=== PATIENT | female | born 1970 | race Caucasian/White ===

== ENCOUNTER 2017-07-20 06:16 | Inpatient (IN) | payer BC, OTHER ==
[2017-07-16 14:35] VITALS: BMI 26.2
[2017-07-20] MEDS ORDERED: THROMBIN (BOVINE) 5,000 UNIT VIAL TP ONE (07:13)
[2017-07-20] MEDS ORDERED: fentaNYL CITRATE 250 MCG/5 ML VIAL ONE ×2 (08:40→12:22)
[2017-07-20] MEDS ORDERED: SUCCINYLCHOLINE CHLORIDE 200 MG/10 ML VIAL ONE (08:40)
[2017-07-20] MEDS ORDERED: PROPOFOL 20 ML ONE ×15 (08:40→15:25)
[2017-07-20] MEDS ORDERED: ceFAZolin SODIUM 1 GM VIAL ONE ×2 (08:41→20:38)
[2017-07-20] MEDS ORDERED: DEXAMETHASONE SOD PHOSPHATE 4 MG/1 ML VIAL ONE (08:41)
[2017-07-20] MEDS ORDERED: ONDANSETRON 4 MG/2 ML VIAL ONE ×2 (08:41→11:56)
[2017-07-20] MEDS ORDERED: TRANEXAMIC ACID 1000 MG/10 ML VIAL ONE (08:41)
[2017-07-20] MEDS ORDERED: VANCOMYCIN 1,000 MG VIAL (RESTRICTED TO ID ONLY) ONE (08:41)
[2017-07-20] MEDS ORDERED: MIDAZOLAM HCL 2 MG/2 ML SINGLE DOSE VIAL ONE ×2 (08:41→11:54)
[2017-07-20] MEDS ORDERED: LIDOCAINE HCL/PF 2% SDV 5ML VIAL ONE (08:41)
[2017-07-20] MEDS ORDERED: SODIUM CHLORIDE 0.9% P/F 10 ML VIAL IJ ONE (08:44)
[2017-07-20] MEDS ORDERED: VANCOMYCIN 1,000 MG VIAL (RESTRICTED TO ID ONLY) IVPB ONE (11:40)
[2017-07-20] MEDS ORDERED: HEPARIN NA (PORCINE) 5,000 UNITS/ML 1ML VIAL ONE (12:25)
[2017-07-20] MEDS ORDERED: ROCURONIUM BROMIDE 50 MG/5 ML VIAL ONE (13:12)
[2017-07-20] MEDS ORDERED: BENZOIN/ALOE VERA/STORAX/TOLU 58 ML BOTTLE ONE (15:37)
--- NOTE | 2017-07-20 16:00 | OP ---
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 C4/5 and C6/7 ACDF. 2. Partial Corpectomies C4,5,6,7. Post-Operative Diagnosis: Same as Pre-op Surgeon: Thiago Walker Environmental Engineering Assistant: Arpan Walker Anesthesiologist/LAND AGENT: Gaetano Barreto Anesthesia: General Specimens Removed: C4/5 C6/7 disc Estimated Blood Loss (mls): 150 Operative Report Dictated: Yes
--- NOTE | 2017-07-20 16:03 | PN ---
Progress Note (short form) - Note Progress Note: 46F s/p SELENE, C4-5 & C6-7 ACDF POD #0. -Admit to ICU post-op x 24 hrs. for airway observation. -Pain control. -DVT PPx: Mechanical only (BRIAN's, SCD's). -Incentive spirometry. -PT/OT/Rehab, OOB. -WBAT B/L UE & LE. -Post op Decadron 10mg IV q12 x 2 doses. -Post-op Antibiotics. -Soft diet; advance as tolerated. -d/c Bloom catheter in PACU; f/u TOV. -HOB elevation at least 45 degrees; increase as tolerated. -NO NSAID's. -Care per medical hospitalist team. -Will follow. -Discharge planning: home. Thiago Walker MD (Orthopaedic Surgery).
[2017-07-20] MEDS ORDERED: ONDANSETRON 4 MG/2 ML VIAL IVPUSH PRN (16:04)
[2017-07-20] MEDS ORDERED: LACTATED RINGERS SOLUTION 1,000 ML IV SCH (16:15)
[2017-07-20] MEDS ORDERED: OMALIZUMAB 150 MG SQ SCH (16:15)
[2017-07-20] MEDS: oxyCODONE HCL 5 MG TABLET PO PRN ×3 (16:50→21:38)
[2017-07-20] MEDS: ACETAMINOPHEN 325 MG TABLET (FP) PO PRN (18:49)
[2017-07-20] MEDS ORDERED: CEFAZOLIN 1 GM in DEXTROSE 5%-WATER - 50 ML IVPB SCH ×2 (19:00→20:34)
--- NOTE | 2017-07-20 20:33 | OP ---
DATE OF OPERATION: 07/20/2017 SURGEON: Thiago Walker MD HARNESS RIGGER SURGEON: Arpan Walker MD PREOPERATIVE DIAGNOSES: Adjacent level spinal stenosis, C6-C7 and segmental instability, C4-5 with associated stenosis at both levels appropriately. POSTOPERATIVE DIAGNOSES: Adjacent level spinal stenosis, C6-C7 and segmental instability, C4-5 with associated stenosis at both levels appropriately. OPERATION PERFORMED: 1. Removal of hardware. 2. Inspection of fusion mass. 3. Anterior cervical diskectomy and fusion, C4-5 and C6-C7. 4. Partial corpectomy, C4; partial corpectomy, C5; partial corpectomy, C6; partial corpectomy, C7. 5. Anterior plating, C4 and C5 and independent, separate plate, C6-C7. 6. Insertion of cages with anterior arthrodesis, C4-5 and C6-C7. ANTIBIOTICS GIVEN: Kefzol 2 g, vancomycin 1 g, Decadron 10 mg given. INDICATIONS: Patient admitted for an adjacent level C6-C7 anterior cervical diskectomy, fusion, and partial corpectomy, but operation details changed, adding to the C4-5 level due to associated anterolisthesis and segmental instability at this level with mild stenosis preventing the need for a third operation which would readily have to be done if this level was neglected and only the C6-C7 level was attended to. OPERATION DETAILS: With the patient in the supine position, a transverse rolled towel behind the scapulae, the neck was extended. Prior to this, in the neutral flat position, neuromonitoring under general anesthesia was performed, found to have excellent levels. The patient was positioned into the papoose extended-neck position, and no change occurred in neuromonitoring. The incision originally was on the right-hand side. We extended the incision at the same level; that is at the cricothyroid interval to the left-hand side. The dissection was taken through the subcutaneous tissue; platysma split. The plane between the viscera and vessels was noted, and even though there was scarring readily noted up to the right-hand side, the dissection facilitated freeing of the longus colli off the bone bed from C4 right down to C7, both left and right-hand side. The retractors were placed into the longus colli, and because of the difficulty of the proximal and distal positioning, we elected to treat each disk separately. To start, the original plate was removed. With the appropriate instrumentation, the fusion mass noted and tested and found to be completely solid. At that point, the light microscope was brought into the room. The C4-5 disk was identified. The annulus resected off the bone bed with a unipolar Bovie. Curettes utilized to scoop out all disk material. It was readily noted hypermobility at the segment as predicted on the MRI and CT scan. Using a Midas Bob bur as well as Kerrison up-cuts, a rectangular space was cut into the bed. This is the area that kyphosis had occurred. Two [place] pins were placed, one into the body of C4 and the other in the body of C5. Distraction across the disk space facilitated episcopal of lordosis. The entire disk was removed right down to healthy bleeding endplate and right down to the posterior longitudinal ligament. A size 7 TETRAfuse cage inserted. This was packed with OSTEOFIL bone graft. This was demineralized bone matrix. The [place] pins were released, and the ligamentotaxis collapsed the bone endplates onto the cage with solid fixation achieved. A size 16 Simplicity plate applied and 4 screws. All this equipment from the [employer]. The screws measured 4 x 12 mm, two placed in C4 and two placed in C5. Solid fixation achieved. Once this had been achieved, attention was drawn to the C6-C7 disk. A repositioning of retractors and [place] pins performed. The disk itself was difficult to identify. Burring anteriorly enabled to find the disk. A rectangle was cut into the bone bed with partial corpectomies having been performed at C6 and C7 in order to achieve access to this disk. The disk was scooped out with curettes as well, and the dissection was taken right down through the posterior longitudinal ligament. The posterior longitudinal ligament at this level was resected to ensure that the stenosis was completely removed. A size 8 TETRAfuse plate was inserted at this level, and 2 screws seated into C6 and 2 screws were seated into C7, ranging 4 x 12 mm at C7 and 4.5 x 12 mm at C6. It must be noted that prior to all cages being inserted, a complete hemostasis was achieved. Hemostasis with a combination of Gelfoam, FloSeal combined with bipolar Bovie. Tissues were dry at the time of plating of the third component which was a size 14-mm Simplicity cage with the above-mentioned screws as noted. This completed independent ACDF of C4-5, C6-7, each level with its independent plate over C4-5 and C6-C7. The reason for not using one long plate was because of the difficulty of achieving proximal and distal exposure at the same time, and we elected to utilize 2 plates in the light of the fact that there was a solid previous fusion. The wounds were thoroughly lavaged. Closure of platysma and subcutaneous investing lateral fascia with 2-0 Vicryl, subcutaneous 3-0 Vicryl, skin 3-0 Monocryl with Steri-Strips. Operation went extremely well. No complications. MD SUJATA Driver/[id number]
[2017-07-20] MEDS ORDERED: DEXTROSE 5%-WATER - 50 ML IVPB ONE (20:39)
[2017-07-20] MEDS: CEFAZOLIN 1 GM in DEXTROSE 5%-WATER - 50 ML IVPB SCH (20:40)
--- NOTE | 2017-07-20 21:13 | CONSULT ---
Consult Consult Specialty:: Critical Care/Pulmonary Medicine Reason for Consultation:: Airway monitoring s/p SELENE, C4-5 & C6-7 ACDF - History of Present Illness Chief Complaint: neck pain History of Present Illness: Mrs. Marc is a 46yo female with pmhx prior sinus surgeries, csection, cone biopsy, cholecystectomy, and seasonal allergies who was admitted to ICU for airway monitoring s/p SELENE, C4-5 & C6-7 ACDF, now POD #0. - History Source History Provided By: Patient Limitations to Obtaining History: No Limitations - Past Medical History ...: No ENT: Yes: Sinusitis, Other (seasonal allergies) - Past Surgical History Past Surgical History: Yes: Cholecystectomy Additional Surgical History: sinus surgeries, cone biopsys, - Alcohol/Substance Use Hx Alcohol Use: No - Smoking History Smoking history: Current some day smoker Have you smoked in the past 12 months: Yes Aproximately how many cigarettes per day: 6 - Social History Usual Living Arrangement: With Spouse ADL: Independent Occupation: Homemaker Home Medications - Allergies Allergies/Adverse Reactions: Allergies Allergy/AdvReac Type Severity Reaction Status Date / Time aspirin Allergy Severe Difficulty Verified 07/16/17 15:10 Breathing codeine Allergy Severe Hives Verified 07/16/17 15:13 ibuprofen Allergy Severe Difficulty Verified 07/16/17 15:12 Breathing Sulfa (Sulfonamide Allergy Severe Hives Verified 07/16/17 15:13 Antibiotics) KIMBALL PEPPERS Allergy Difficulty Uncoded 07/16/17 15:15 Breathing - Home Medications Home Medications: Ambulatory Orders Esomeprazole Magnesium [Nexium 24Hr] 40 mg PO DAILY 07/16/17 Hydrocodone/Acetaminophen [Vicodin 5-300 mg Tablet] 1 each PO PRN PRN 07/16/17 Montelukast Sodium [Singulair] 10 mg PO DAILY 07/16/17 Omalizumab [Xolair -] 150 mg SQ MONTHLY 07/16/17 Review of Systems - Review of Systems Constitutional: reports: No Symptoms Eyes: reports: No Symptoms HENT: reports: No Symptoms Neck: reports: Pain on Movement, Tenderness Cardiovascular: reports: No Symptoms Respiratory: reports: No Symptoms Gastrointestinal: reports: No Symptoms Genitourinary: reports: No Symptoms Musculoskeletal: reports: Other (neck pain) Integumentary: reports: No Symptoms Neurological: reports: No Symptoms Physical Exam Vital Signs: Vital Signs Temperature 98.4 F 07/20/17 17:58 Pulse Rate 76 07/20/17 17:58 Respiratory Rate 20 07/20/17 17:58 Blood Pressure 109/78 07/20/17 17:58 O2 Sat by Pulse Oximetry (%) 93 L 07/20/17 17:58 Constitutional: Yes: Well Nourished Eyes: Yes: WNL HENT: Yes: WNL Neck: Yes: Other (anterior surgical dsg c/d/i) Cardiovascular: Yes: WNL Respiratory: Yes: CTA Bilaterally Gastrointestinal: Yes: WNL, Normal Bowel Sounds, Soft Musculoskeletal: Yes: WNL Extremities: Yes: WNL Edema: No Peripheral Pulses WNL: Yes Integumentary: Yes: WNL Wound/Incision: Yes: Clean/Dry Neurological: Yes: WNL, Alert, Oriented ...Motor Strength: WNL Psychiatric: Yes: WNL Assessment/Plan Mrs. Marc is a 46yo female with pmhx prior sinus surgeries, csection, cone biopsy, cholecystectomy, and seasonal allergies who was admitted to ICU for airway monitoring s/p SELENE, C4-5 & C6-7 ACDF, now POD #0. Plan: -Admitted to ICU post-op for 24 hours of close airway monitoring -Pain control prn -Avoid NSAIDs -Anxiety control prn -Incentive spirometry -Extubated post-op --> Currently on NC, Wean supplemental O2 as able for goal O2sat >93% -As per surgeon - Decadron 10mg IV q12 x 2 doses -Post-op abx as ordered -Advance diet as tolerated -Ensure void after corona d/c -Maintain HOB >45 degrees -DVT ppx with SCDs, no SQ Hep -No indication for GI ppx -Dispo: will likely dc home tomorrow in daytime JORGE Banda CC time: 30minutes
[2017-07-20] MEDS ORDERED: diazePAM 2 MG TABLET PO ONE (21:30)
[2017-07-20] MEDS: DEXAMETHASONE SOD PHOSPHATE 10 MG/1 ML VIAL IVPUSH SCH (22:57)
[2017-07-20] MEDS ORDERED: diazePAM 5 MG TABLET PO ONE (23:00)
[2017-07-21] MEDS: oxyCODONE HCL 5 MG TABLET PO PRN ×4 (01:02→12:42)
[2017-07-21] MEDS: ACETAMINOPHEN 325 MG TABLET (FP) PO PRN (01:03)
[2017-07-21] MEDS ORDERED: ceFAZolin SODIUM 1 GM VIAL ONE (04:04)
[2017-07-21] MEDS: CEFAZOLIN 1 GM in DEXTROSE 5%-WATER - 50 ML IVPB SCH (04:08)
[2017-07-21 06:31] LABS: HEMATOCRIT 40.8 % (32.4-45.2); HEMOGLOBIN 14.1 GM/dL (10.7-15.3); MCH 30.5 pg (25.7-33.7); MCHC 34.4 g/dl (32.0-36.0); MEAN CELL VOLUME 88.6 fl (80-96); MEAN PLT VOLUME 9.8 fl (7.5-11.1); PLATELET COUNT 274 K/MM3 (134-434); RBC 4.61 M/mm3 (3.60-5.2); RDW 12.2 % (11.6-15.6); WHITE BLOOD COUNT 14.5 K/mm3 (4.0-10.0)
[2017-07-21 06:51] LABS: ANION GAP 10 (8-16); BLOOD UREA NITROGEN 8 mg/dL (7-18); CALCIUM 8.7 mg/dL (8.5-10.1); CHLORIDE 108 mmol/L (98-107); CO2 23 mmol/L (21-32); GLUCOSE,RANDOM 129 mg/dL (74-106); POTASSIUM 4.4 mmol/L (3.5-5.1); SODIUM 141 mmol/L (136-145)
[2017-07-21 06:52] LABS: CREATININE 0.7 mg/dL (0.55-1.02)
[2017-07-21] MEDS ORDERED: MONTELUKAST NA 10 MG TABLET PO SCH (10:00)
[2017-07-21 10:25] VITALS: TEMP 98.5
[2017-07-21] MEDS: DEXAMETHASONE SOD PHOSPHATE 10 MG/1 ML VIAL IVPUSH SCH (11:22)
--- NOTE | 2017-07-21 11:36 | DS ---
Physical Exam: SUBJECTIVE: Patient seen and examined in ICU. She is feeling good today, complaining of mild pain in her neck. She denies headache, vision problems, dizziness, chest pain, SOB, N/V. OBJECTIVE: Vital Signs Period Temp Pulse Resp BP Sys/Greer Pulse Ox Last 24 Hr 97.8 F-99.5 F 58-97 14-20 105-126/59-79 92-96 PHYSICAL EXAM GENERAL: The patient is awake, alert, and fully oriented, in no acute distress. HEAD: Normal with no signs of trauma. EYES: extraocular movements intact, sclera anicteric, conjunctiva clear. ENT: Ears normal, nares patent, oropharynx clear without exudates, moist mucous membranes. NECK: Trachea midline, limited range of motion, supple, 4x4 dressing applied in the front of her neck, no skin erythema, no discharge. LUNGS: Breath sounds equal, occasional rhonchi, no wheezing, no accessory muscle use. HEART: Regular rate and rhythm, S1, S2 without murmur, rub or gallop. ABDOMEN: Soft, nontender, nondistended, normoactive bowel sounds, no guarding, no rebound, no hepatosplenomegaly, no masses. EXTREMITIES: no edema. NEUROLOGICAL: Normal speech, no facial asymmetry, normal sensation, 5/5 motor strength, gait not observed. PSYCH: Normal mood, normal affect. SKIN: Warm, dry, no rashes. LABS Laboratory Results - last 24 hr 07/21/17 07/21/17 05:40 05:40 WBC 14.5 H RBC 4.61 Hgb 14.1 Hct 40.8 MCV 88.6 MCH 30.5 MCHC 34.4 RDW 12.2 Plt Count 274 MPV 9.8 Sodium 141 Potassium 4.4 Chloride 108 H Carbon Dioxide 23 Anion Gap 10 BUN 8 Creatinine 0.7 Random Glucose 129 H Calcium 8.7 HOSPITAL COURSE: Date of Admission:07/20/17 Date of Discharge: 07/21/17 Minutes to complete discharge: 35 Discharge Summary Reason For Visit: CERVICAL DISC DISORDER Current Active Problems History of cervical spinal surgery (Acute) Hospital Course: The patient is a 46 year old female with a PMH of asthma, seasonal allergies, s/ p cervical surgery 10 years ago that was admitted cervical SELENE C4-5 & c6-7 ACDF on 07/20/2017. Her surgery as well as pos op period was not complicated. She received LR, Decadron 10 mg, pain medications: Fetanyl, Oxycodone and Tylenol. Her pain was well controlled. After the surgery the patient started on regular diet and Bloom catheter was removed. She also didn't require Oxygen supplementation and started ambulating early. She was discharged home with te recommendations to resume normal activities, continue taking OTC pain medications, if needed ad follow up with her Orthopedic Surgeon as outpatient. Condition: Good - Instructions Diet, Activity, Other Instructions: You were admitted to [facility] for surgery of C4-5 & C6-7 spine. After the discharge you may resume normal daily activities. Try to limit neck movement if you still experience severe pain. Please keep the dressing on your neck dry and clean. Please continue taking medications for asthma that you were taking before coming to the hospital. If you have pain you may take over the counter pain medications like Tylenol. Please follow up with Dr Walker in a week. If you experience severe neck pain, dizziness, headache, vision problems, chest pain, palpitations or worsening of any of your symptoms, come back to Emergency Room as soon as possible. Referrals: Thiago Walker MD [Staff Physician] - 1 Week Disposition: HOME - Home Medications Comprehensive Discharge Medication List: Ambulatory Orders Esomeprazole Magnesium [Nexium 24Hr] 40 mg PO DAILY 07/16/17 Hydrocodone/Acetaminophen [Vicodin 5-300 mg Tablet] 1 each PO PRN PRN 07/16/17 Montelukast Sodium [Singulair] 10 mg PO DAILY 07/16/17 Omalizumab [Xolair -] 150 mg SQ MONTHLY 07/16/17 Problem List - Problems (1) Asthma Code(s): J45.909 - UNSPECIFIED ASTHMA, UNCOMPLICATED (2) History of cervical spinal surgery Code(s): Z98.890 - OTHER SPECIFIED POSTPROCEDURAL STATES (3) Seasonal allergies Code(s): J30.2 - OTHER SEASONAL ALLERGIC RHINITIS This patient is new to me today: Yes Date on this admission: 07/21/17 Emergency Visit: Yes ED Registration Date: 07/20/17 Care time: The patient presented to the Emergency Department on the above date and was hospitalized for further evaluation of their emergent condition. Critical Care patient: Yes Total Critical Care Time (in minutes): 30 Critical Care Statement: The care of this patient involved high complexity decision making to prevent further life threatening deterioration of the patient 's condition and/or to evaluate & treat vital organ system(s) failure or risk of failure. - Discharge Referral Referred to [facility] No
--- NOTE | 2017-07-21 11:51 | PN ---
Teaching Attending Note Name of Resident: Tania Paniagua ATTENDING PHYSICIAN STATEMENT I saw and evaluated the patient. I reviewed the resident's note and discussed the case with the resident. I agree with the resident's findings and plan as documented. SUBJECTIVE: Patient is awake, alert, oriented. She has pain in her neck. She wants to go home. OBJECTIVE: Vital Signs Period Temp Pulse Resp BP Sys/Greer Pulse Ox Last 24 Hr 97.8 F-99.5 F 58-97 14-20 105-126/59-79 92-96 HEART: S1S2, RRR LUNGS: Clear ABDOMEN: Soft, non-tender, non-distended, normal BS EXTREMITIES: No edema Laboratory Results - last 24 hr 07/21/17 07/21/17 05:40 05:40 WBC 14.5 H RBC 4.61 Hgb 14.1 Hct 40.8 MCV 88.6 MCH 30.5 MCHC 34.4 RDW 12.2 Plt Count 274 MPV 9.8 Sodium 141 Potassium 4.4 Chloride 108 H Carbon Dioxide 23 Anion Gap 10 BUN 8 Creatinine 0.7 Random Glucose 129 H Calcium 8.7 Current Medications Generic Name Dose Route Start Last Admin Trade Name Freq PRN Reason Stop Dose Admin Acetaminophen 650 mg 07/20/17 16:15 07/21/17 01:03 Tylenol - PO 650 mg Q6H PRN Administration PAIN LEVEL 1 - 3 Fentanyl 50 mcg 07/20/17 17:37 Sublimaze Injection - IVPUSH Q5M PRN PAIN-PACU ORDER X 4 DOSES ONLY Lactated Ringer's 1,000 mls @ 83 mls/hr 07/20/17 16:15 07/20/17 17:30 Lactated Ringers Solution IV 83 mls/hr ASDIR TORY Administration Lorazepam 0.5 mg 07/20/17 16:12 07/20/17 19:44 Ativan Injection - IVPUSH 0.5 mg Q6H PRN Administration ANXIETY Montelukast Sodium 10 mg 07/21/17 10:00 07/21/17 11:21 Singulair - PO Not Given DAILY TORY Non-Formulary Medication 150 mg 07/20/17 16:15 Omalizumab SQ MONTHLY TORY Ondansetron HCl 4 mg 07/20/17 16:04 Zofran Injection IVPUSH Q6H PRN NAUSEA AND/OR VOMITING Oxycodone HCl 5 mg 07/20/17 16:04 07/21/17 08:17 Roxicodone - PO 5 mg Q4H PRN Administration PAIN LEVEL 4 - 6 Oxycodone HCl 10 mg 07/20/17 16:04 07/21/17 05:29 Roxicodone - PO 10 mg Q4H PRN Administration PAIN LEVEL 7 - 10 ASSESSMENT AND PLAN: This is a 46 year old woman with a history of asthma, seasonal allergies, cervical stenosis, C-spine surgery who was admitted after undergoing removal of hardware; C4-5 and C6-7 anterior cervical discectomy and fusion; partial corpectomy C4, C5, C6 and C7; anterior plating C4 and C5, C6-C7; insertion of cages with anterior arthrodesis C4-C5 and C6-C7. 1. Asthma, seasonal allergies - Stable - Continue Singulair, Xolair 2. Cervical stenosis - POD #1 3. Ok for discharge from medical standpoint
[2017-07-21 13:00] VITALS: BP 112/68; PULSE 70
--- NOTE | 2017-07-22 15:33 | PATH ---
Surgical Pathology Report Patient Name: EVANGELINA IZAGUIRRE [facility]. Rec. #: [id number] /Age/Gender: 1970 (Age: 46) / F Account: [id number] Location: ICU DIRECTOR DIGITAL ADVERTISING Taken: 07/20/2017 Received: 07/21/2017 Reported: 07/22/2017 Physicians: Arpan Walker M.D. Specimen(s) Received A: HARDWARE B: DISC C4,C5,C6,C7 Clinical History Cervical disc disorder Final Diagnosis A. CERVICAL SPINE, HARDWARE, REMOVAL: SURGICAL HARDWARE. MACROSCOPIC DIAGNOSIS. B. DISC, C4-C5-C6, ANTERIOR CERVICAL DISCECTOMY: INTERVERTEBRAL DISC TISSUE. Electronically Signed Ruth Ann Torres M.D. Gross Description A. Received fresh labeled "hardware from cervical spine," is a 2.2 x 1.6 x 0.3 cm metallic plate. Also received within the same container are 4 mancera metallic screws averaging 1.5 cm in length. No soft tissue is present. No sections are submitted, gross only. B. Received in formalin labeled "disc C4-C5-C6," is a 3.0 x 2.3 x 0.3 cm aggregate of maciel fragments of fibrocartilaginous tissue. A patient admitting representative portion is submitted in one cassette. 07/21/201707/21/2017
== END 2017-07-21 13:22 | disposition home or self-care (01) | DRG 473 ==
LOC: JSAMEDAYSX 06:16 → EDSTATUS 08:00 → JICU 17:33
PROVIDERS: ADMIT Orthopaedic Surgery Orthopaedic Surgery of the Spine; ATTEND Orthopaedic Surgery Orthopaedic Surgery of the Spine
PROC: 0RG20A0 Fusion of 2 or more Cervical Vertebral Joints with Interbody Fusion Device, Anterior Approach, Anterior Column, Open Approach (ICD-10-PCS; 2017-07-20)
PROC: 0RG20J0 Fusion of 2 or more Cervical Vertebral Joints with Synthetic Substitute, Anterior Approach, Anterior Column, Open Approach (ICD-10-PCS; 2017-07-20)
PROC: 0WP Anatomical Regions, General, Removal (ICD-10-PCS; 2017-07-20)
PROC: 0RT30ZZ Resection of Cervical Vertebral Disc, Open Approach (ICD-10-PCS; principal; 2017-07-20 08:00)
DX: M48.02 Spinal stenosis, cervical region (principal); J45.909 Unspecified asthma, uncomplicated; Z98.890 Other specified postprocedural states; Z72.0 Tobacco use
CPT/HCPCS: 36415; 76000-TC-FY; 80048; 85027; 86850; 86900; 86901; 88300-TC; 88304-TC; 94760; J1100; J1644